=== PATIENT | male | born 1985 | race Caucasian/White ===

== ENCOUNTER 2021-09-03 18:08 | Emergency (ER) | payer OTHER ==
[~2021-09-03] VITALS: Ht 182.9 cm; Wt 72.7 kg
[2021-09-03] MEDS ORDERED: PERTUSS(ACELL),DIPH,TET VAC/PF 0.5 ML SYRINGE IM. ONE (18:45)
[2021-09-03] MEDS ORDERED: LIDOCAINE 1% 10 ML VIAL SQ ONE (18:45)
[2021-09-03] MEDS ORDERED: BACITRACIN 0.9 GM PACKET OINTMENT TP ONE (18:45)
[2021-09-03 19:51] VITALS: BP 116/67
== END 2021-09-03 20:16 | disposition home or self-care (01) ==
LOC: EMS 18:11
DX: S61.412A Laceration without foreign body of left hand, initial encounter (principal); W26.0XXA Contact with knife, initial encounter; Y93.89 Activity, other specified; Y92.89 Other specified places as the place of occurrence of the external cause; Y99.8 Other external cause status
CPT/HCPCS: 12002; 90471; 90715; 99283; J3490

== ENCOUNTER 2021-12-28 19:22 | Emergency (ER) | payer OTHER ==
[~2021-12-28] VITALS: Ht 185.4 cm; Wt 72.7 kg
[2021-12-28 19:28] VITALS: BP 110/73
[2021-12-28] MEDS ORDERED: KETOROLAC TROMETHAMINE 30 MG/ML VIAL IM ONE (22:00)
[2021-12-28] MEDS ORDERED: LIDOCAINE 5% TRANSDERMAL PATCH TD ONE (22:00)
[2021-12-28] MEDS ORDERED: IBUP-2070 PO (22:26)
== END 2021-12-28 22:38 | disposition home or self-care (01) ==
LOC: EMS 19:44
DX: R07.81 Pleurodynia (principal)
CPT/HCPCS: 71046; 96372; 99283; J1885